=== PATIENT | female | born 1965 | race Caucasian/White ===

== ENCOUNTER 2017-05-17 17:01 | Outpatient (CLI) | payer MEDICARE, MEDICAID ==
[2016-04-06 06:18] VITALS: BMI 21.7
[~2017-05-17 17:01] MED LIST: ASPIRIN EC81 M1 PO; CRESTOR20 MG PO; DILANTIN100 MG PO; ENDOCET 10-3251 TAB PO; HYDROCODONE-APA1 TAB PO; METOPROLOL TAR100 M1 PO; PLAVIX75 MG PO; TOPROL XL25 MG PO; TRIAMTERENE-HCT1 TA1 PO; VALIUM5 MG PO
== END 2017-05-17 17:33 ==
LOC: D.MAMMO 17:01
DX: Z12.31 Encounter for screening mammogram for malignant neoplasm of breast (principal)

== ENCOUNTER → 2017-09-11 12:08 | Outpatient (CLI) | payer MEDICARE, MEDICAID ==
[2016-04-06 06:18] VITALS: BMI 21.7
== END | disposition home or self-care (01) ==
LOC: D.NM 12:08
DX: R10.9 Unspecified abdominal pain (principal)

== ENCOUNTER 2018-08-21 11:23 | Emergency (ER) | payer MEDICARE, MEDICAID ==
[~2018-08-21] VITALS: Ht 154.9 cm; Wt 49.1 kg
[2018-08-21 11:40] VITALS: Ht 154.9 cm; Wt 49.1 kg
[2018-08-21 12:00] LABS: BASOPHILS 0.2 % (0-2); EOSINOPHILS 4.5 % (0-7); HEMATOCRIT 44.5 % (36.0-48.0); HEMOGLOBIN 15.6 g/dL (12-16); IMMATURE GRANULOCYTES 0.4 % (0-5); LYMPHOCYTES 22.2 % (15-50); MCH 32.9 pg (26.0-34.0); MCHC 35.1 g/dL (31.0-37.0); MCV 93.9 fL (80.0-100.0); MEAN PLATELET VOLUME 9.6 fL (7.4-10.4); MONOCYTES 8.5 % (2-11); NEUTROPHILS 64.2 % (40-80); PLATELET COUNT 419 10x3/uL (130-400); RBC 4.74 10x6/uL (4.00-5.40); RDW 11.9 % (11.5-14.5); WBC 12.4 10x3/uL (4.8-10.8)
[2018-08-21 12:03] LABS: APPEARANCE HAZY (CLEAR); BILIRUBIN NEGATIVE (NEGATIVE); COLOR YELLOW (YELLOW); GLUCOSE NEGATIVE (NEGATIVE); KETONE NEGATIVE (NEGATIVE); NITRITE NEGATIVE (NEGATIVE); PROTEIN NEGATIVE (NEGATIVE); SPECIFIC GRAVITY 1.005 (1.005-1.020); UROBILINOGEN NORMAL (NORMAL)
[2018-08-21 12:08] LABS: UDS - AMPHET NEGATIVE QUAL (NEGATIVE); UDS - BARB NEGATIVE QUAL (NEGATIVE); UDS - BENZO POSITIVE QUAL (NEGATIVE); UDS - COCAINE NEGATIVE QUAL (NEGATIVE); UDS - OPIATE NEGATIVE QUAL (NEGATIVE); UDS - PCP NEGATIVE QUAL (NEGATIVE); UDS - THC NEGATIVE QUAL (NEGATIVE)
[2018-08-21 12:23] LABS: ALBUMIN 4.4 g/dL (3.4-5.0); ALKALINE PHOSPHATASE 201 U/L (46-116); ALT (SGPT) 37 U/L (10-68); BILIRUBIN - TOTAL 0.28 mg/dL (0.2-1.3); CALC OSMOLALITY 261 mosm/kg (275-300); CALCIUM 9.6 mg/dL (8.5-10.1); CARBON DIOXIDE 26.4 mmol/L (21.0-32.0); CHLORIDE - SERUM 91 mmol/L (98-107); CREATININE - SERUM 0.5 mg/dL (0.6-1.3); GLUCOSE 135 mg/dL (74-106); MAGNESIUM - SERUM 1.8 mg/dL (1.8-2.4); PHENYTOIN (DILANTIN) 5.2 ug/mL (10.0-20.0); POTASSIUM - SERUM 4.4 mmol/L (3.5-5.1); PROTEIN - SERUM 8.4 g/dL (6.4-8.2); SODIUM 131 mmol/L (136-145); UREA NITROGEN 4 mg/dL (7-18); eGFR NON AFRICAN AMERICAN > 90 mL/min (90-120)
[2018-08-21] MEDS ORDERED: DECADRON4 MG PO (16:22)
[2018-08-21 16:43] VITALS: BP 155/90
== END 2018-08-21 16:35 | disposition left against medical advice (07) ==
LOC: D.ER 11:23
PROVIDERS: Emergency Medicine
DX: S06.5X9A Traumatic subdural hemorrhage with loss of consciousness of unspecified duration, initial encounter (principal); X58.XXXA Exposure to other specified factors, initial encounter; Y93.89 Activity, other specified; Y92.019 Unspecified place in single-family (private) house as the place of occurrence of the external cause; G40.909 Epilepsy, unspecified, not intractable, without status epilepticus; I10 Essential (primary) hypertension; J44.9 Chronic obstructive pulmonary disease, unspecified; F17.200 Nicotine dependence, unspecified, uncomplicated

== ENCOUNTER 2018-09-06 10:20 | Inpatient (IN) | payer MEDICARE, MEDICAID ==
[2018-09-05 10:06] LABS: HEMATOCRIT 44.1 % (36.0-48.0); MCH 32.4 pg (26.0-34.0); MCV 95.2 fL (80.0-100.0); MEAN PLATELET VOLUME 9.8 fL (7.4-10.4); RBC 4.63 10x6/uL (4.00-5.40)
[~2018-09-06] VITALS: Ht 154.9 cm; Wt 55.2 kg
[2018-09-06] VITALS (9 sets, daily range): BP systolic 113–159; BP diastolic 57–77; BMI 20.4; BMI 22.2
--- NOTE | ~2018-09-06 | OP ---
PATIENT NAME: KRYSTEN GARCIA MEDICAL RECORD: [id number] [facility] ADMISSION DATE:09/07/18 SURGEON: SHAYNE FLORES MD DATE OF OPERATION: 09/06/2018 PREOPERATIVE DIAGNOSIS: Right frontotemporal subacute subdural hematoma. POSTOPERATIVE DIAGNOSIS: Right frontotemporal subacute subdural hematoma. PROCEDURE: Right temporal eloisa hole for evacuation of subdural hematoma. DESCRIPTION OF TECHNIQUE: After induction of general endotracheal anesthesia, the patient was positioned spine on the operating table. Neck was prepped and draped in usual sterile fashion. A 1:100,000 epinephrine with 1% lidocaine was infiltrated into the scalp. An incision was made to the pinna of the right ear. A eloisa hole was created with [employer] drill. The dura was opened in a cruciate manner with bipolar cautery and #11 blade. There was brisk egress of chronic appearing subdural hematoma fluid. This was irrigated in the subdural space until it was crystal clear. The galea was reapproximated with interrupted 2-0 Vicryl suture. The skin was closed with darrin. A sterile dressing was applied to the wound. The patient was awakened in good condition and taken to recovery. All counts were reported as correct. Estimated blood loss was minimal. 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
--- NOTE | ~2018-09-06 | MORECARE ---
CASE MANAGEMENT DISCHARGE SUMMARY PATIENT: KRYSTEN GARCIA UNIT: [id number] ADM DATE: 09/07/18 AGE: 52 : 63 SEX: F ROOM/BED: [facility] AUTHOR: AUGUSTO BARNES PHYSICIAN: REFERRING PHYSICIAN: SHAYNE FLORES MD DATE OF SERVICE: 09/08/18 Discharge Plan Patient Name: KRYSTEN GARCIA Facility: [facility]:[place] : 1965 Planned Disposition: Home Anticipated Discharge Date: 09/08/18 Discharge Date: 09/08/2018 Expected LOS: 1 Initial Reviewer: [email or web address] Initial Review Date: 09/06/2018 Generated: 09/08/18 4:07 pm Patient Name: KRYSTEN GARCIA Page [id number] at 1507 All edits/amendments must be made on the electronic document DICTATION DATE: 09/08/18 1507 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
[~2018-09-06 10:20] MED LIST changes: +DECADRON4 MG PO; +PROZAC20 MG PO
[2018-09-07] VITALS (23 sets, daily range): BP systolic 104–172; BP diastolic 42–95; Ht 154.9 cm; Wt 55.2 kg
[2018-09-08] VITALS (14 sets, daily range): BP systolic 119–160; BP diastolic 48–87
== END 2018-09-08 14:25 | disposition home or self-care (01) | DRG 27 ==
LOC: OBSVTIME → D.CVICU 10:20 → D.SDCHOLD 10:20 → D.CVICU 10:20 → D.OPS 10:20 → D.SDCHOLD 11:15 → OBSVTIME 12:00 → D.SDCHOLD 12:30 → D.CVICU 16:37
PROVIDERS: Anesthesiology
PROC: 00943ZZ Drainage of Intracranial Subdural Space, Percutaneous Approach (ICD-10-PCS; principal; 2018-09-07)
DX: S06.5X9A Traumatic subdural hemorrhage with loss of consciousness of unspecified duration, initial encounter (principal)

== ENCOUNTER → 2018-10-30 11:34 | Outpatient (CLI) | payer MEDICARE, MEDICAID ==
[2018-09-07 08:37] VITALS: BMI 22.7
== END | disposition home or self-care (01) ==
LOC: D.CT 10-25 14:30
DX: S06.5X0D Traumatic subdural hemorrhage without loss of consciousness, subsequent encounter (principal); X58.XXXA Exposure to other specified factors, initial encounter

== ENCOUNTER 2019-11-06 08:00 | Outpatient (CLI) | payer MEDICARE, MEDICAID ==
[2018-09-07 08:37] VITALS: BMI 22.7
== END 2019-11-06 23:59 | disposition home or self-care (01) ==
LOC: D.MAMMO 08:00
PROVIDERS: ATTEND Family Medicine
DX: Z12.31 Encounter for screening mammogram for malignant neoplasm of breast (principal)